=== PATIENT | female | born 1960 | race Caucasian/White ===

== ENCOUNTER 2025-02-04 11:49 | Emergency (ER) | payer OTHER, MEDICARE ==
--- OUTSIDE RECORDS SUMMARY | 2025-02-04 11:51 | XMS REPORT | Continuity of Care Document ---
Author Name Unknown Address [address] [facility] [address] [place] [address] [facility] Address [address] [facility] [place] [address] Care Team Providers Care Internet Consultant Name Role Phone Aaron Pritchard Attending Clinician Aaron Scott Admitting Clinician Belen goncalves Payers Payer Name Policy Type Policy Number Effective Date Expirati on Date Source Allergies, Adverse Reactions, Alerts Allergy Name Allergy Type Status Severity Reaction(s) Onset Date Inactive Date Treating Clinician Comments Source codeine DA Active [place] 08-29 00:00: 00 [facility] codeine DA Active MO ITCHING 08-29 00:00: 00 [facility] Medications Ordered Medication Name Filled Medication Name Start Date Stop Date Current Medication? Ordering Clinician Indication Dosage Frequency Signature (SIG) Comments Components Source Botox Cosmetic 100 unit intramuscul ar solution Inject 55 units by intramuscul ar route. Botox Cosmetic 100 unit intramuscul ar solution Inject 55 units by intramuscul ar route. No 55unit( s) Botox Cosmetic 100 unit intramuscu lar solution Inject 55 units by intramuscu lar route. [facility] Vital Signs Vital Name Observation Time Observation Value Comments S ource BP Diastolic 2023-03-14 00:00:00 63 mm[Hg] [facility] BP Systolic 2023-03-14 00:00:00 101 mm[Hg] [facility] Body Weight 2023-03-14 00:00:00 2277 [oz_av] [facility] Encounters Start Date/Time End Date/Time Encounter Type Admission Type Attending Clinicians Care Facility Care Department Encounter ID Source 2023-03-14 00:00:00 2023-03-14 00:00:00 Katie Craig, MSN, PHOTO TECHNICIAN, CONTRACT MODELER-C: [address], [address], [place] [address] , Ph. [facility], [facility], Katie Craig, MSN, CONTRACT MODELER-C [id number] Critical access hospital [facility] 2021-02-23 12:00:00 2021-02-23 12:00:00 Outpatient Aaron Tucker [facility] [id number] [facility]
[2025-02-04 12:25] LABS: Absolute Lymphocytes (CBC) 2.4 K/uL (0.7-4.9); Hematocrit 43.8 % (36.0-45.0); Hemoglobin 14.8 g/dL (12.0-15.0); MCH 29.7 pg (27.0-35.0); MCHC 33.9 g/dL (32.0-36.0); MCV 87.6 fL (80-100); MPV 8.0 fL (7.6-11.3); Nucleated RBC Absolute Count 0.0 (0-0); Nucleated Red Blood Cells % 0.1 % (0-0); RBC Red Blood Cell Count 5.00 M/uL (3.86-4.86); White Blood Count 6.80 thou/uL (4.3-10.9)
[2025-02-04 12:32] LABS: PT Prothrombin Time 12.3 SECONDS (10-13.0); Protime INR 1.09
[2025-02-04 12:53] LABS: ALT/SGPT 23 U/L (13-56); Albumin 3.7 g/dL (3.4-5.0); Albumin/Globulin Ratio 1.1 (1.1-1.8); Alkaline Phosphatase 73 U/L (45-117); Anion Gap 7.9 mEq/L (5.0-15.0); BUN Blood Urea Nitrogen 9 mg/dL (7-18); Bilirubin Indirect, Calculated 0.5 mg/dL (0.2-0.8); Globulin 3.3 g/dL (2.3-3.5); Glucose Level 116 mg/dL (74-106); Magnesium 1.9 mg/dL (1.6-2.4); NT PRO-BNP 137 pg/mL (<125); Potassium 3.9 mEq/L (3.5-5.1)
[2025-02-04 13:01] LABS: AST/SGOT < 10 U/L (15-37)
--- NOTE | 2025-02-04 14:17 | RAD REPORT ---
EXAM: Chest Single View HISTORY: 65 years Female CHEST PAIN COMPARISON: No prior exams FINDINGS: LUNGS/PLEURA: Emphysema. No edema or focal consolidation. CARDIAC/MEDIASTINUM: The cardiac silhouette is within normal limits. UPPER ABDOMEN: No significant abnormality. BONES: No acute abnormality. Scoliosis. LINES/TUBES/OTHER: N/A IMPRESSION: No evidence of acute cardiopulmonary disease.
--- NOTE | 2025-02-04 15:30 | EDPHYS ---
Physician Documentation [facility] Name: Adriana Chin Age: 65 yrs Sex: Female : 1960 Arrival Date: 02/04/2025 Time: 11:49 Bed 14 Private MD: ED Physician Zoila Toro HPI: 02/04 15:33 This 65 yrs old Female presents to ER via Ambulatory with complaints of Chest gb1 Pain, Shortness Of Breath. 15:33 65-year-old female here with shortness of breath and cough for the last 2 to 3 months. gb1 She went to urgent care today and had an EKG done and they were concerned and sent her to the ER for evaluation. Patient denies fever, she also quit smoking about a year ago. She smoked for over 30 years. 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 Historical: - Allergies: 12:54 Codeine; ss - Home Meds: 12:54 None [Active]; ss - PMHx: 12:54 None; ss - PSHx: 12:54 neck; ss - Immunization history:: Adult Immunizations unknown. - Infectious Disease History:: Denies. - Social history:: Smoking status: unknown. Exam: 15:33 Constitutional: This is a well developed, well nourished patient who is awake, alert, gb1 and in no acute distress. Head/Face: Normocephalic, atraumatic. Eyes: Pupils equal round and reactive to light, extra-ocular motions intact. Lids and lashes normal. Conjunctiva and sclera are non-icteric and not injected. Cornea within normal limits. Periorbital areas with no swelling, redness, or edema. ENT: Nares patent. No nasal discharge, no septal abnormalities noted. Tympanic membranes are normal and external auditory canals are clear. Oropharynx with no redness, swelling, or masses, exudates, or evidence of obstruction, uvula midline. Mucous membranes moist. Neck: Trachea midline, no thyromegaly or masses palpated, and no cervical lymphadenopathy. Supple, full range of motion without nuchal rigidity, or vertebral point tenderness. No Meningismus. Chest/axilla: Normal chest wall appearance and motion. Nontender with no deformity. No lesions are appreciated. Cardiovascular: Regular rate and rhythm with a normal S1 and S2. No gallops, murmurs, or rubs. Normal PMI, no JVD. No pulse deficits. Respiratory: Decreased lung sounds bilaterally/auscultation and percussion. Positive expiratory wheeze no increased work of breathing, no retractions or nasal flaring. Vital Signs: 12:30 BP 115 / 77; Resp 15; Temp 98.2(TE); Pulse Ox 97% on R/A; Weight 61.23 kg; Height 5 ft. ss 7 in. ; 12:45 BP 109 / 83; Pulse 62; Resp 21; Pulse Ox 100% on R/A; ar8 13:45 BP 101 / 69; Pulse 68; Resp 18; Pulse Ox 95% on R/A; ar8 14:45 BP 115 / 75; Pulse 75; Resp 20; Pulse Ox 98% on R/A; ar8 15:30 BP 115 / 77; Pulse 66; Resp 22; Pulse Ox 98% on R/A; ar8 12:30 Body Mass Index 21.14 (61.23 kg, 170.18 cm) MDM: 12:02 Medical Screening Exam initiated gb1 15:33 ED course: 65-year-old female with substernal chest pain and shortness of breath is gb1 coming with an expiratory wheeze cough. She has a chest x-ray consistent with emphysema no focal infiltrates or masses appreciated. Her EKG today is showing some abnormal changes with flattened T waves in V2 and inverted T waves in aVL and flat T waves in lead I. Sinus rhythm at 66 bpm. This is an abnormal EKG at this time she does have risk factors for ACS however she has a negative troponin and otherwise normal laboratory exams. I don't see any signs of occult pulmonary edema on her chest x-ray. She likely does have a diagnosis of emphysema but does need to be seen and evaluated by cardiology for stress test and pulmonology for pulmonary function test. I have given her outpatient instructions for establishment of primary care as well as the after mentioned subspecialty referrals.. 02/04 12:23 Order name: Basic Metabolic Panel; Complete Time: 13:58 EDTX 02/04 12:23 Order name: Liver (Hepatic) Function; Complete Time: 13:58 EDTX 02/04 12:23 Order name: NT PRO-BNP; Complete Time: 13:58 EDMS 18 12:23 Order name: Magnesium; Complete Time: 13:58 EDMS 18 12:23 Order name: CBC with Automated Diff; Complete Time: 13:58 EDMS 18 12:23 Order name: Protime (+INR); Complete Time: 13:58 EDMS 18 13:22 Order name: Troponin High Sensitivity; Complete Time: 13:58 EDMS 02/04 12:02 Order name: XRAY Chest (1 view); Complete Time: 14:38 gb1 02/04 12:02 Order name: EKG; Complete Time: 12:03 gb1 02/04 12:02 Order name: Cardiac monitoring; Complete Time: 12:16 gb1 02/04 12:02 Order name: EKG - Nurse/Tech; Complete Time: 12:16 gb1 02/04 12:02 Order name: IV Saline Lock; Complete Time: 12:16 gb1 02/04 12:02 Order name: Labs collected and sent; Complete Time: 12:16 gb1 02/04 12:02 Order name: O2 Per Protocol; Complete Time: 12:16 gb1 02/04 12:02 Order name: O2 Sat Monitoring; Complete Time: 12:16 gb1 Administered Medications: No medications were administered Disposition Summary: 02/04/25 15:29 Discharge Ordered Notes: Location: Home gb1 Condition: Stable gb1 Diagnosis - Interstitial emphysema gb1 - Dyspnea, unspecified gb1 Followup: gb1 - With: Daya Sharif, DO - When: - Reason: Further diagnostic work-up, Recheck today's complaints Discharge Instructions: - Discharge Summary Sheet gb1 - Shortness of Breath, Adult, [id number] gb1 - COPD and Physical Activity gb1 Forms: - Medication Reconciliation Form gb1 - Antibiotic Education gb1 - Prescription Opioid Use gb1 - Patient Portal Instructions gb1 - Leadership Thank You Letter gb1 Prescriptions: - Albuterol Sulfate 2.5 mg /3 mL (0.083 %) Inhalation Solution for Nebulization - inhale 1 unit NEBULIZATION route every 8 hours As needed; 1 unit; Refills: 0, gb1 Product Selection Permitted - albuterol sulfate 90 mcg/actuation Inhalation HFA Aerosol Inhaler - inhale 2 puff INHALATION route every 6 hours as needed for shortness of breath dr5 or wheezing; 1 application; Refills: 0, Product Selection Permitted Signatures: Dispatcher [employer] EDMS Amina Lyons, RN RN ss Zoila Toro MD MD gb1 Atif Curry RN RN ar8 Corrections: (The following items were deleted from the chart) 13:19 12:03 BASIC METABOLIC PANEL+C.LAB.BRZ ordered. EDMS EDMS 13:19 12:03 HEPATIC FUNCTION+C.LAB.BRZ ordered. EDMS EDMS 13:19 12:03 MAGNESIUM+C.LAB.BRZ ordered. EDMS EDMS 13:19 12:03 PROBNP+C.LAB.BRZ ordered. EDMS EDMS 13:19 12:03 Troponin High Sensitivity+C.LAB.BRZ ordered. EDMS EDMS 13:23 12:03 PROTIME (+INR)+COAG.LAB.BRZ ordered. EDMS EDMS 13:24 12:03 CBC+H.LAB.BRZ ordered. EDMS EDMS
--- NOTE | 2025-02-04 15:30 | ER ---
Nurse's Notes [facility] Name: Adriana Chin Age: 65 yrs Sex: Female : 1960 Arrival Date: 02/04/2025 Time: 11:49 Bed 14 Private MD: Diagnosis: Interstitial emphysema;Dyspnea, unspecified Presentation: 02/04 12:30 Chief complaint: Patient states: cough x 3 months, chest heaviness x 1 month and not ss feeling well. Sent by urgent care for abnormal EKG. Coronavirus screen: Client denies travel out of the [place] in the last 14 days. Ebola Screen: Patient denies exposure to infectious person. Patient denies travel to an Ebola-affected area in the 21 days before illness onset. Initial Sepsis Screen: Does the patient meet any 2 criteria? No. Patient's initial sepsis screen is negative. Does the patient have a suspected source of infection? No. Patient's initial sepsis screen is negative. Risk Assessment: Do you want to hurt yourself or someone else? Patient reports no desire to harm self or others. Onset of symptoms is unknown. 12:30 Method Of Arrival: Ambulatory ss 12:30 Acuity: AKASH 3 ss Historical: - Allergies: 12:54 Codeine; ss - Home Meds: 12:54 None [Active]; ss - PMHx: 12:54 None; ss - PSHx: 12:54 neck; ss - Immunization history:: Adult Immunizations unknown. - Infectious Disease History:: Denies. - Social history:: Smoking status: unknown. Screenin:45 [facility] ED Fall Risk Assessment (Adult) History of falling in the last 3 months, ar8 including since admission No falls in past 3 months (0 pts) Confusion or Disorientation No (0 pts) Intoxicated or Sedated No (0 pts) Impaired Gait No (0 pts) Mobility Assist Device Used No (0 pt) Altered Elimination No (0 pt) Score/Fall Risk Level 0 - 2 = Low Risk Oriented to surroundings, Maintained a safe environment. Abuse screen: Denies threats or abuse. Nutritional screening: No deficits noted. Tuberculosis screening: No symptoms or risk factors identified. Assessment: 12:30 General: Appears in no apparent distress. Behavior is calm, cooperative. Pain: ar8 Complains of pain in chest. Neuro: Level of Consciousness is awake, alert, obeys commands, Oriented to person, place, time, situation. 12:30 Cardiovascular: Reports chest pain, Patient's skin is warm and dry. Chest pain quality ar8 is pressure. Respiratory: Airway is patent Respiratory effort is even, unlabored, Respiratory pattern is regular, symmetrical. GI: No signs and/or symptoms were reported involving the gastrointestinal system. : No signs and/or symptoms were reported regarding the genitourinary system. EENT: No signs and/or symptoms were reported regarding the EENT system. Derm: No signs and/or symptoms reported regarding the dermatologic system. Musculoskeletal: No signs and/or symptoms reported regarding the musculoskeletal system. Vital Signs: 12:30 BP 115 / 77; Resp 15; Temp 98.2(TE); Pulse Ox 97% on R/A; Weight 61.23 kg; Height 5 ft. ss 7 in. ; 12:45 BP 109 / 83; Pulse 62; Resp 21; Pulse Ox 100% on R/A; ar8 13:45 BP 101 / 69; Pulse 68; Resp 18; Pulse Ox 95% on R/A; ar8 14:45 BP 115 / 75; Pulse 75; Resp 20; Pulse Ox 98% on R/A; ar8 15:30 BP 115 / 77; Pulse 66; Resp 22; Pulse Ox 98% on R/A; ar8 12:30 Body Mass Index 21.14 (61.23 kg, 170.18 cm) ED Course: 11:54 Patient arrived in ED. im 12:00 Zoila Toro MD is Attending Physician. gb1 12:12 Atif Curry, RN is Primary Nurse. ar8 12:16 EKG done, by quick technician. reviewed by Zoila Toro MD. ts3 12:17 Initial lab(s) drawn, by tanbark laborer, sent to lab. Inserted saline lock: 20 gauge in right ts3 antecubital area, using aseptic technique. Blood collected. Flushed with 10 mL NS. 12:45 No provider procedures requiring assistance completed. Patient maintains SpO2 ar8 saturation greater than 95% on room air. 12:45 Placed in gown. Bed in low position. Call light in reach. Side rails up X2. Provided ar8 Education on: plan of care, diagnostics, estimated wait time. Client placed on continuous cardiac and pulse oximetry monitoring. NIBP monitoring applied. 12:45 Arm band placed on right wrist. ar8 12:54 Triage completed. ss 13:41 radiology at bedside for portable CXR. ar8 14:11 XRAY Chest (1 view) In Process Unspecified. EDMS 15:29 Daya Sharif DO is Referral Physician. gb1 16:01 IV discontinued, intact, bleeding controlled, No redness/swelling at site. Pressure ar8 dressing applied. Administered Medications: No medications were administered Medication: 12:45 VIS not applicable for this client. ar8 Outcome: 15:29 Discharge ordered by . gb1 16:01 Discharged to home ambulatory, ar8 16:01 Condition: stable 16:01 Discharge instructions given to patient, significant other, Instructed on discharge instructions, follow up and referral plans. medication usage, Demonstrated understanding of instructions, follow-up care, medications, Prescriptions given X 1, 16:02 Patient left the ED. ar8 Signatures: Dispatcher [employer] EDCO Amina Lyons RN RN Genesis Richards Gina, MD MD gb1 Monse Denise 3 Atif Curry RN RN ar8
[2025-02-04 16:20] VITALS: TEMP 98.2
[2025-02-04 16:25] VITALS: O2SAT 98
[2025-02-04 16:27] VITALS: BP 115/77
== END 2025-02-04 16:02 | disposition home or self-care (01) ==
LOC: ER 11:49
DX: J98.2 Interstitial emphysema (principal); R07.9 Chest pain, unspecified
CPT/HCPCS: 36415; 71045; 80048; 80076; 83735; 83880; 84484; 85025; 85610; 93005; 99284